=== PATIENT | male | born 1970 | race African-American/Black ===

== ENCOUNTER 2019-04-04 18:36 | Emergency (ER) | payer BC ==
[2019-04-04] MEDS ORDERED: Bacitracin 1 PK ONE (18:54)
[2019-04-04] MEDS ORDERED: Adacel (T-DAP) 0.5 ML SYRINGE ONE (18:57)
== END 2019-04-04 19:18 | disposition home or self-care (01) ==
LOC: NAV ERS 18:36
DX: T25.231A Burn of second degree of right toe(s) (nail), initial encounter (principal); T25.221A Burn of second degree of right foot, initial encounter; T31.0 Burns involving less than 10% of body surface; I10 Essential (primary) hypertension; K21.9 Gastro-esophageal reflux disease without esophagitis; F17.210 Nicotine dependence, cigarettes, uncomplicated; Z79.899 Other long term (current) drug therapy; X19.XXXA Contact with other heat and hot substances, initial encounter
CPT/HCPCS: 16020; 90471; 90715